=== PATIENT | female | born 1985 | race Caucasian/White ===

== ENCOUNTER 2024-10-23 00:11 | Emergency (ER) | payer OTHER, SELFPAY ==
[2024-10-23 00:13] VITALS: BP 139/93
[2024-10-23 00:16] VITALS: BP 139/93
[2024-10-23 01:31] VITALS: BMI 21.0
--- NOTE | 2024-10-23 01:47 | ED.GENMED ---
History of Present Illness
General
Chief Complaint: Seizure
Source: patient
Exam Limitations: none
Time Seen by Provider: 10/23/24 01:20
Nursing documentation reviewed up to this point in time: agreed with
History of Present Illness
History of Present Illness:
39-year-old female with a past medical history of polysubstance use presents to the ER from [facility] for evaluation after seizure-like activity. Patient has been incarcerated since 10/07/2024. She says that her last drug
use was 10/05/2024. She had been using multiple substances including fentanyl, tranq, benzos, methamphetamines, cocaine. When she was incarcerated she was placed on Suboxone taper, Klonopin taper and according to group home staff this was completed on
10/15/2024. Apparently this evening patient had a few episodes of seizure-like activity. I spoke to the nurse at the correctional facility directly�apparently guard witnessed some shaking activity in the cell and a medical alert was called;
apparently by the time of arrival patient was back to normal but she was brought to the medical figueroa for assessment. Apparently she was noted to be hypertensive and was given propranolol 20 mg for hypertension. While she was there nurse witnessed
shaking activity again while patient was seated in the chair�apparently however during this episode patient was responsive to her surroundings and it was felt likely that this was pseudoseizure. She ultimately was sent back to her cell to sleep but
another medical alert was called 20 minutes later and she was given 2 mg of Ativan at that point at the direction of group home physician. About an hour after this she again was witnessed by guards to have some shaking activity but no postictal period.
She was sent to the emergency room to be evaluated. Patient says that she feels 'achy' and fatigued here. Denies chest pain, breathing troubles. No vomiting. Denies headache. No known seizure history.
Review of Systems
Review of Systems
All Other Systems: ROS reviewed and negative except as documented in HPI and ROS
Constitutional: Reports fatigue; Denies fever
Respiratory: Denies trouble breathing
Cardiac: Denies chest pain
ABD/GI: Denies abdominal pain or vomiting
Neurological: Denies dizzy, headache, weakness or numbness
Phy Exam
Physical Exam
Physical Exam:
General: Awake, alert, oriented x3; no acute distress
Head: Normocephalic, atraumatic
Eyes: Conjunctiva normal, EOMI, pupils 4 mm and reactive to light bilaterally
Throat: Airway intact, handling secretions, tongue is atraumatic
Neck: Trachea midline, supple without meningismus
Lungs: Clear to auscultation bilaterally, no wheezing, rales, rhonchi
Heart: Regular rate and rhythm, no murmurs, gallops, or rubs
Abd: Soft, non distended, nontender
Neuro: Cranial nerves intact, speech fluid, motor and sensory intact in all extremities
Skin: [place] track winters on the arms
Extremities: No edema in extremities, equal pulses in all extremities
Scores
Heart Failure Risk
Heart Failure Risk Score: Not Applicable
Heart Score for Chest Pain Patients
STEMI patient?: Not applicable
Withdrawal Assessment of Alcohol
Withdrawal Assessment Completed?: Not applicable
Course
Orders/Labs/Results
Orders:
Orders
10/23/24 01:01
Test Result ONCE
10/23/24 01:37
Complete Blood Count/With Diff Urgent
Comprehensive Metabolic Panel Urgent
Fentanyl, Urine Urgent
HCG, Serum Qualitative Screen Urgent
Urine Drug Abuse Screen Urgent
Date Specimen was Collected: 10/23/24
Time Specimen was Collected: 01:01
10/23/24 01:49
CT Head W/o Iv Contrast Urgent
Comment:
Reason For Exam: seizures
10/23/24 02:00
Electrocardiogram (*1) Urgent
Reason for Study: Syncope
EKG- Treatment ONCE
10/23/24 02:01
0.9% Sodium Chloride 1000 ml [Nss] 1,000 ml IV BOLUS
Abnormal Lab Results
10/23/24
01:37
RBC 4.18 L 10^6/uL
(4.20-5.40)
Hgb 11.4 L g/dL
(12.0-16.0)
Hct 34.7 L %
(37.0-47.0)
MCHC 32.9 L g/dL
(33.0-37.0)
RDW 17.0 H %
(11.5-14.5)
BUN 18 H mg/dl
(7-17)
Glucose 104 H mg/dl
(70-99)
Calcium 10.3 H mg/dl
(8.4-10.2)
10/23/24 01:37
10/23/24 01:37
Vital Signs
Initial and Last Documented VS:
Initial Vital Signs
Temp Pulse Resp BP Pulse Ox
36.4 C 96 19 139/93 97
10/23/24 00:13 10/23/24 00:13 10/23/24 00:13 10/23/24 00:13 10/23/24 00:13
Last Documented Vital Signs
Temp Pulse Resp BP Pulse Ox
36.4 C 98 15 139/93 100
10/23/24 00:13 10/23/24 02:30 10/23/24 02:30 10/23/24 00:16 10/23/24 02:30
MDM/Problems Addressed
Differential Diagnosis Includes:
Seizure, pseudoseizure
MDM/Problems Addressed:
39-year-old female presents to the ER from [facility] after 4 total episodes of witnessed seizure-like activity. She has no known history of seizures. She does have a history of polysubstance use but says she has not used
since 10/05/2024 and has been incarcerated since 10/07/2024. She did complete taper of Suboxone and Klonopin last dose was 10/15/2024. 4 events tonight 1 of which was actually witnessed by medical staff at present and during this witnessed event she
was apparently responsive to her environment. No reported postictal period. Events sound inconsistent with true seizures. Will plan to check labs including a CBC and a CMP, hCG, urinalysis. Check an EKG. Will check CT head. Will provide some
fluids. Will monitor clinically reassess after the above.
Labs reviewed: CBC shows marginal anemia no other clinically significant abnormalities. CMP within acceptable range�notably normal bicarb and renal function, normal glucose. Her hCG is negative. CT head pending. Continue to monitor.
CT head negative for any acute pathology. Patient observed here for 4 hours no additional seizure-like activity normal neurologic exam, normal vital signs. At this point no clear evidence that these were true seizures�no incontinence, tongue
biting, postictal period described in the 1 seizure that was witnessed by medical staff patient did seem to be aware of her surroundings/responding to external stimuli. No clear indication for hospital admission at this point, stable for discharge.
Chronic conditions affecting care:
Polysubstance
*Radiology
Radiology exam reviewed: radiology read reviewed
*Pulse Oximetry
Patient hypoxic: no
*EKG
Interpreted by ED Provider?: Yes
Heart Rate: 93
Rate: normal
Rhythm: sinus
[place]: normal axis
Interval: normal interval
QRS Pattern: normal QRS
Ischemia: no ischemia
*Critical Care Note
Total Time (30-74mins, 75-104mins- exclusive of procedures): Not Applicable
Data Reviewed
Source: patient, police (Intermediate staff) and other (group home records)
Patient Management
Discussion with other providers: Intermediate staff
ED Attending Note
-
Portions of this chart may have been created with voice recognition software.� Occasional wrong word or��sound alike� substitutions may have occurred due to the inherent limitations of voice recognition software.
Discharge Plan
Departure
Patient Disposition: Home (Routine Discharge)
Date of Disposition: 10/23/24
Time of Disposition: 03:29
Patient with high blood pressure during this ER visit?: No
Discharge Problem:
Seizure-like activity
Referrals:
[facility] [Family Provider] - Follow up in 2-3 days
Activity Restrictions/Additional Instructions:
Thank you for visiting the Emergency Department at [facility].
1. Please schedule a follow up appointment as directed. Call first thing tomorrow morning to make an appointment.
2. If indicated, please take your medications as instructed and indicated on discharge paperwork.
3. If any of your symptoms do not improve, or persist, or become more severe within 6-12 hours, please return to the emergency department for further care.
4. Please return to the emergency department if you develop a headache, neck pain/stiffness, fever greater than 100.4F, chest pain, shortness of breath, persistent nausea, vomiting, slurred speech, difficulty walking, numbness/tingling, weakness,
signs of infection or any other symptoms that are worrisome to you.
Please call [phone] if you have any questions.
Interventions
Interventions:
*Risk Screen - Suicide Last Done: 10/23/24 00:13
*General Assessment Last Done: 10/23/24 00:13
*Neglect/Abuse Screening Last Done: 10/23/24 00:13
*ED- Fall Risk Assessment Last Done: 10/23/24 01:31
*ED COVID-19 Vaccine History Last Done: 10/23/24 00:13
ED- Cardiac Assessment Last Done: 10/23/24 01:31
ED- Neurological Assessment Last Done: 10/23/24 01:31
ED- Pulmonary Assessment Last Done: 10/23/24 01:31
Discharge Date and Time
Print Language: [id number]
[2024-10-23 01:54] LABS: % Basophils 0.7 % (0-2); % Eosinophils 1.9 % (0-6); % Immature Granulocytes 0.1 % (0-0.5); % Neutrophils 58.3 % (42.2-75.2); Absolute Basophils 0.1 10^3/uL (0-0.2); Absolute Eosinophils 0.2 10^3/uL (0-0.7); Absolute Lymphocytes 3.4 10^3/uL (1.2-3.4); Absolute Monocytes 0.5 10^3/uL (0.1-0.6); Absolute Neutrophils 5.9 10^3/uL (1.4-6.5); Hematocrit 34.7 % (37.0-47.0); Hemoglobin 11.4 g/dL (12.0-16.0); Mean Corp Hgb Conc. 32.9 g/dL (33.0-37.0); Mean Corpuscular Hgb 27.3 pg (27.0-31.0); Mean Platelet Volume 9.5 fL (7.4-10.4); Nucleated Red Blood Cells % 0 %; Platelet Count 315 10^3/uL (130-400); Red Blood Cell Count 4.18 10^6/uL (4.20-5.40); White Blood Cell Count 10.1 10^3/uL (4.8-10.8)
[2024-10-23 02:14] LABS: HCG, Serum Qualitative Screen Negative
[2024-10-23] MEDS: NSS 1000 IV (02:14)
[2024-10-23 02:15] LABS: ALT (SGPT) 14 U/L (0-35); AST (SGOT) 16 U/L (14-36); Albumin 4.3 g/dl (3.5-5.0); Alkaline Phosphatase 62 U/L (38-126); Blood Urea Nitrogen 18 mg/dl (7-17); Calcium 10.3 mg/dl (8.4-10.2); Carbon Dioxide 25 mmol/L (22-30); Chloride 101 mmol/L (98-107); Estimated Creatinine Clearance 109 ml/min; Glucose 104 mg/dl (70-99); Potassium 4.9 mmol/L (3.5-5.1); Sodium 138 mmol/L (135-145); Total Bilirubin 0.3 mg/dl (0.2-1.3); Total Protein 7.6 g/dl (6.3-8.2); eGFR > 60.00
[2024-10-23 02:23] LABS: Fentanyl, Urine Negative (Negative)
[2024-10-23 02:38] LABS: Amphetamines Negative (Negative); Barbiturates Negative (Negative); Benzodiazepines Negative (Negative); Buprenorphine Negative (Negative)
[2024-10-23 02:39] LABS: Cocaine Negative (Negative); Marijuana Negative (Negative); Methadone Negative (Negative); Methamphetamines Negative (Negative); Opiates Negative (Negative); Phencyclidine Negative (Negative); Tricyclic Antidepressants Negative (Negative)
[2024-10-23 03:00] VITALS: BP 96/66
== END 2024-10-23 04:08 ==
LOC: EMR 00:11
PROVIDERS: Emergency Medicine; EMERGENCY PHYSICIAN Emergency Medicine
DX: R56.9 Unspecified convulsions (principal); I10 Essential (primary) hypertension; F19.10 Other psychoactive substance abuse, uncomplicated
CPT/HCPCS: 99284; 96360; 70450; 80053; 80306; 80307; 84703; 85025; 93005